=== PATIENT | female | born 1960 | race Caucasian/White ===

== ENCOUNTER → 2020-06-08 08:15 | Outpatient (BNVA) | payer MEDICAID, SELFPAY | PROVIDERS: Family Provider Nurse Practitioner Family; PCP Nurse Practitioner Family; Visit Provider Specialist | DX: G56.02 Carpal tunnel syndrome, left upper limb (principal); R20.0 Anesthesia of skin; R20.2 Paresthesia of skin | CPT/HCPCS: 95886; 95908 ==

== ENCOUNTER 2020-07-29 13:06 | Outpatient (CLI) | payer MEDICAID, SELFPAY ==
--- NOTE | 2020-07-29 13:11 | MR_ITS ---
WS: [id number] MRI LEFT SHOULDER NONCONTRAST TECHNIQUE: Sagittal T2, coronal T1, T2 and proton density imaging. Axial gradient PDE imaging. CLINICAL INFORMATION: PAIN IN LEFT SHOULDER COMPARISON: January 2019 FINDINGS: Images moderately degraded by motion. Mild degenerative arthritis AC joint with mild downsloping acromion. Slight subacromial spurring. Hig h-grade rotator cuff tear involving the distal supraspinatus with tendon retraction. Full-thickness s upraspinatus tear with tendon retraction measuring approximately 1.9 CM. Edema within the supraspinat us. Edema within the infraspinatus muscle belly with partial thickness tendon tear and edema. Chronic thinning of the distal infraspinatus. Normal teres minor. Partial tear involving the distal subscapularis. Normal biceps tendon in the bici pital groove. Biceps labral anchor appears in tact. Intra-articular biceps tendon appears intact. Deg enerative fraying of the glenoid labrum. MR/MR shoulder LT wo con* [id number] IMPRESSION: 1. High-grade full-thickness tear involving the supraspinatus distally with te ndon retraction measuring 1.9 CM. This is new since 2019. 2. High-grade tear involving the distal infraspinatus with edema and chronic t hinning. 3. Chronic thinning of the distal subscapularis tendon which appears intact. 4. Normal biceps tendon in the bicipital groove. 5. Biceps labral anchor appears intact. 6. Mild degenerative arthritis AC joint with mild downsloping acromion. Small amount of subacromial/subdeltoid fluid.
== END 2020-07-29 13:07 | disposition home or self-care (01) ==
LOC: RADSHAW 13:09
PROVIDERS: Family Provider Nurse Practitioner Family; PCP Nurse Practitioner Family; Visit Provider Nurse Practitioner Family
DX: M75.102 Unspecified rotator cuff tear or rupture of left shoulder, not specified as traumatic (principal); M19.012 Primary osteoarthritis, left shoulder; R60.0 Localized edema; S46.812A Strain of other muscles, fascia and tendons at shoulder and upper arm level, left arm, initial encounter; X58.XXXA Exposure to other specified factors, initial encounter
CPT/HCPCS: 73221

== ENCOUNTER → 2020-08-03 15:00 | Outpatient (BNVA) | payer MEDICAID, SELFPAY | PROVIDERS: Family Provider Nurse Practitioner Family; PCP Nurse Practitioner Family; Referring Provider Nurse Practitioner Family; Visit Provider Specialist | DX: G56.02 Carpal tunnel syndrome, left upper limb (principal) | CPT/HCPCS: 73110 ==

== ENCOUNTER → 2020-08-27 09:34 | Outpatient (BNVA) | payer MEDICAID, SELFPAY | PROVIDERS: Family Provider Nurse Practitioner Family; PCP Nurse Practitioner Family; Referring Provider Registered Nurse; Visit Provider Specialist | DX: S49.90XA Unspecified injury of shoulder and upper arm, unspecified arm, initial encounter (principal); X58.XXXA Exposure to other specified factors, initial encounter; M77.9 Enthesopathy, unspecified | CPT/HCPCS: 73030 ==

== ENCOUNTER → 2020-11-11 08:15 | Outpatient (BNVA) | payer MEDICAID, SELFPAY | PROVIDERS: Family Provider Nurse Practitioner Family; PCP Nurse Practitioner Family; Visit Provider Orthopaedic Surgery | DX: S62.600A Fracture of unspecified phalanx of right index finger, initial encounter for closed fracture (principal); X58.XXXA Exposure to other specified factors, initial encounter | CPT/HCPCS: 73140 ==

== ENCOUNTER → 2021-03-04 09:38 | Outpatient (BNVA) | payer MEDICAID, SELFPAY | PROVIDERS: Family Provider Nurse Practitioner Family; PCP Nurse Practitioner Family; Visit Provider Specialist | DX: S49.92XA Unspecified injury of left shoulder and upper arm, initial encounter (principal); X58.XXXA Exposure to other specified factors, initial encounter | CPT/HCPCS: 73030 ==

== ENCOUNTER → 2021-05-18 10:31 | Outpatient (BNVA) | payer MEDICAID, SELFPAY | PROVIDERS: Family Provider Nurse Practitioner Family; PCP Nurse Practitioner Family; Visit Provider Internal Medicine | DX: E11.40 Type 2 diabetes mellitus with diabetic neuropathy, unspecified (principal); E11.22 Type 2 diabetes mellitus with diabetic chronic kidney disease; N18.30 Chronic kidney disease, stage 3 unspecified; E78.2 Mixed hyperlipidemia; I73.9 Peripheral vascular disease, unspecified; Z79.4 Long term (current) use of insulin | CPT/HCPCS: 99204 ==

== ENCOUNTER 2021-05-18 12:03 | Outpatient (CLI) | payer MEDICAID, SELFPAY | END 2021-05-18 12:04 | disposition home or self-care (01) | PROVIDERS: PCP Nurse Practitioner Family; Visit Provider Internal Medicine | DX: E13.9 Other specified diabetes mellitus without complications (principal) | CPT/HCPCS: 83519; 83525; 86337; 86341 ==

== ENCOUNTER → 2021-06-03 14:32 | Outpatient (BNVA) | payer MEDICAID, SELFPAY | PROVIDERS: PCP Nurse Practitioner Family; Visit Provider Internal Medicine | DX: E11.40 Type 2 diabetes mellitus with diabetic neuropathy, unspecified (principal); E11.22 Type 2 diabetes mellitus with diabetic chronic kidney disease; N18.30 Chronic kidney disease, stage 3 unspecified; E11.51 Type 2 diabetes mellitus with diabetic peripheral angiopathy without gangrene; E78.2 Mixed hyperlipidemia; Z79.4 Long term (current) use of insulin | CPT/HCPCS: 99214 ==

== ENCOUNTER → 2021-07-08 08:26 | Outpatient (BNVA) | payer MEDICAID, SELFPAY | PROVIDERS: PCP Nurse Practitioner Family; Visit Provider Specialist | DX: X58.XXXA Exposure to other specified factors, initial encounter; Z71.89 Other specified counseling; M19.012 Primary osteoarthritis, left shoulder; S46.012A Strain of muscle(s) and tendon(s) of the rotator cuff of left shoulder, initial encounter | CPT/HCPCS: 20610; J1100; J2795; J3301 ==

== ENCOUNTER → 2022-05-24 14:19 | Outpatient (BNVA) | payer MEDICAID, SELFPAY | PROVIDERS: PCP Nurse Practitioner Family; Referring Provider Nurse Practitioner Family; Visit Provider Nurse Practitioner Family | DX: M17.12 Unilateral primary osteoarthritis, left knee (principal) | CPT/HCPCS: 20610; 73560; 73565; 99214; J1100; J2795; J3301 ==

== ENCOUNTER → 2022-08-31 14:59 | Outpatient (BNVA) | payer MEDICAID, SELFPAY | PROVIDERS: PCP Nurse Practitioner Family; Visit Provider Otolaryngology | DX: H93.13 Tinnitus, bilateral (principal) | CPT/HCPCS: 99202 ==

== ENCOUNTER 2022-08-31 15:39 | Emergency (ER) | payer MEDICAID, SELFPAY ==
[2022-08-31 16:14] VITALS: BP 132/71; PULSE 90; RESP 18; TEMP 37; O2SAT 95; BMI 41.1
--- NOTE | 2022-08-31 17:23 | XRR_ITS ---
PROCEDURE INFORMATION: Exam: XR Left Knee Exam date and time: 08/31/2022 4:34 PM Age: 62 years old Clinical indication: Pain; Knee; Left; Additional info: Injury TECHNIQUE: Imaging protocol: Radiologic exam of the left knee. Views: 3 views. AP Obilque Lateral COMPARISON: No relevant prior studies available. FINDINGS: Bones/joints: There is mild tibia vera. There are no fractures or dislocations. 3 compartment degenerative osteophytes are seen with medium-sized anterior distal femoral degenerative osteophytes. Severe medial tibiofemoral compartment and patellofemoral compartment joint space narrowing is seen, consistent with osteoarthritic change. There are no joint bodies. Soft tissues: There appears to be a tiny knee joint effusion. There are no radiopaque foreign bodies. There is no significant radiographic knee region soft tissue swelling. Notes: If there is further concern, recommend follow-up radiographs or MRI for complete assessment. XR/XR knee LT 3V* [id number] IMPRESSION: No fractures or dislocation of the left knee. Severe degenerative changes of the left knee, as noted above.
--- NOTE | 2022-08-31 17:23 | XRR_ITS ---
PROCEDURE INFORMATION: Exam: XR Left Elbow Exam date and time: 08/31/2022 4:32 PM Age: 62 years old Clinical indication: Pain; Elbow; Left; Additional info: Injury TECHNIQUE: Imaging protocol: Radiologic exam of the left elbow. Views: 3 or more views. AP Oblique Lateral COMPARISON: No relevant prior studies available. FINDINGS: Bones/joints: There are no fractures or dislocations. The joint spaces are normal. There is no joint effusion. Curvilinear calcification is seen in the region of the medial distal humeral epicondylar region, suggestive of calcific tendinopathy. Soft tissues: There is no soft tissue swelling or radiopaque foreign bodies. Notes: If there is further clinical concern, recommend followup radiographs, bone scan or MRI for further assessment. XR/XR elbow LT min 3V* [id number] IMPRESSION: No fractures or dislocation of the left elbow.
--- NOTE | 2022-08-31 17:24 | W.ED.FALL ---
HPI - Fall General: Chief Complaint: Fall Stated Complaint: parking lot fall, lt knee, lt elbow Time Seen by Provider: 08/31/22 17:22 History of Present Illness: 62-year-old female comes in today with complaints of injury sustained during a fall. Patient was going into the medical office building when she had stepped up onto a curb and was looking to make sure no vehicles coming and missed stepped causing her to fall striking her left knee and her left elbow against the ground. Patient has an abrasion and bruising noted to the left elbow. Superficial bruising is noted to the anterior knee. Patient is able to bear weight. Patient denies any head injury, headache, nausea/vomiting, or chest pain. Associated symptoms-after fall: Denies chest pain, headache(s) or neck pain Review of Systems General: Reports: 10 or more systems reviewed and unremarkable except in HPI and below Const: Denies: fever(s) Card: Denies: chest pain Resp: Denies: dyspnea : Denies: difficulty voiding Musc: Reports: extremity pain and extremity swelling; Denies: neck pain or back pain Skin/Breast: Reports: new lesions (Abrasion elbow) Neuro: Denies: headache(s) PFSH ED PFSH: Medical History Depression DM2 (diabetes mellitus, type 2) Essential (primary) hypertension GERD (gastroesophageal reflux disease) Osteoarthritis Overactive bladder PAD (peripheral artery disease) Surgical History History of History of cholecystectomy History of hysterectomy History of knee surgery History of repair of rotator cuff Family History Other Diabetes Heart disease Hypertension Social History Smoking and tobacco status: never smoked Alcohol intake: never Substance/Drug Use: never Physical Exam Const: COMMON NORMALS: alert HENMT: COMMON NORMALS: normocephalic HEAD & SCALP: normocephalic Neck/C-Spine: COMMON NORMALS: full ROM Resp: COMMON NORMALS: normal respiratory effort and clear to auscultation bilaterally AUSCULTATION: clear to auscultation bilaterally Cardio: COMMON NORMALS: regular rate and regular rhythm RATE: regular rate RHYTHM: regular rhythm Neuro: SENSORIUM/ORIENTATION: Yes alert Course Vital Signs: Vital signs: Vital Signs Temperature 98.6 F 08/31/22 16:14 Pulse Rate 90 08/31/22 16:14 Respiratory Rate 18 08/31/22 16:14 Blood Pressure 132/71 08/31/22 16:14 Pulse Oximetry 95 08/31/22 16:14 Oxygen Delivery Me thod Room Air 08/31/22 16:14 MDM - Fall Medical Decision Making Patient comes in today for evaluation of injury in which she was stepping off a curb and was looking to make sure no other person or vehicle was coming in which she lost her step causing her to fall onto her left knee and left elbow. Patient denies head injury or back pain. Patient has a bruise and abrasion to the left elbow posterior region. She does have range of motion except with full extension some decrease due to pain. Patient has slight bruising to the anterior knee but no noticeable abrasion. Differential diagnosis includes contusion, abrasion, fracture, dislocation. X-ray of the elbow and knee indicated no acute bony injury. Patient does have severe arthritis to the left knee. Abrasion to the elbow was cleaned and dressed with topical antibiotic bacitracin and covered. Recommend patient continue with antibiotic ointment to the abrasion until healed. Recommend follow-up with primary care for further evaluation and treatment. Patient reported understanding agreed to plan. Discharge Plan Discharge Patient Disposition: Home Clinical Impression: Fall from slip, trip, or stumble Qualifiers: Encounter type: initial encounter Qualified Code(s): W01.0XXA - Fall on same level from slipping, tripping and stumbling without subsequent striking against object, initial encounter Abrasion of elbow, left Qualifiers: Encounter type: initial encounter Qualified Code(s): S50.312A - Abrasion of left elbow, initial encounter Contusion of elbow, left Qualifiers: Encounter type: initial encounter Qualified Code(s): S50.02XA - Contusion of left elbow, initial encounter Contusion of knee, left Qualifiers: Encounter type: initial encounter Qualified Code(s): S80.02XA - Contusion of left knee, initial encounter Condition: Stable Prescriptions: New bacitracin 500 unit/gram ointment 1 applic topical BID Qty: 28 0RF No Action [employer] SoloStar U-300 Insulin 300 unit/mL (1.5 mL) insulin pen 60 unit SUBCUT DAILY meloxicam 15 mg tablet 15 mg PO DAILY Qty: 30 0RF Rx Instructions: take one tablet daily naproxen 500 mg tablet 500 mg PO BID pantoprazole 20 mg tablet,delayed release (DR/EC) 20 mg PO BID rosuvastatin 40 mg tablet 40 mg PO DAILY bupropion HCl [Wellbutrin XL] 300 mg tablet extended release 24 hr 300 mg PO QAM citalopram 40 mg tablet 40 mg PO DAILY insulin aspart U-100 [Novolog FlexPen U-100 Insulin] 100 unit/mL (3 mL) insulin pen See Rx Instructions SUBCUT TID Rx Instructions: SUBCUT three times daily; per sliding scale (DME) blood sugar diagnostic Strip See Rx Instructions .ROUTE .MEDSUPPLY Qty: 100 0RF Rx Instructions: TEST THREE TIMES DAILY (DME) Precision Xtra Test Strip See Rx Instructions .ROUTE .MEDSUPPLY Qty: 100 3RF Rx Instructions: three times daily Januvia 100 mg tablet 100 mg PO DAILY Qty: 30 3RF docusate sodium [Colace] 100 mg capsule 100 mg PO BID Qty: 30 3RF atenolol-chlorthalidone 50-25 mg tablet 1 tab PO DAILY Qty: 30 3RF aspirin [Adult Aspirin Regimen] 81 mg tablet,delayed release (DR/EC) 81 mg PO DAILY Qty: 30 3RF loratadine [Allergy Relief (loratadine)] 10 mg tablet 10 mg PO DAILY Qty: 30 3RF Discharge Orders: Discharge ED (Routine); Ordered 08/31/22 Ordered By: Tejas Saini Referrals: Sil Eason NP [Primary Care Provider] - Discharge Diet: Usual diet Discharge Activity: Increase activity as tolerated Patient Instructions: Abrasion (ED) Activity Restrictions/Additional Instructions: Clean abrasion with mild soap and water, apply antibiotic ointment and cover as needed with a light dressing. Use acetaminophen and/or ibuprofen as needed for pain. Activity as tolerated. Follow-up with primary care for further instruction. Return to ED for new concerns. Coding Level of Care Code ED [employer] for Trang Rodriguez
[2022-08-31] MEDS: bacitracin ointment Pkt 1 EACH TOPICAL (18:30)
== END 2022-08-31 18:47 | disposition home or self-care (01) ==
PROVIDERS: Emergency Provider Nurse Practitioner Family; PCP Nurse Practitioner Family
DX: S50.312A Abrasion of left elbow, initial encounter (principal); S50.02XA Contusion of left elbow, initial encounter; S80.02XA Contusion of left knee, initial encounter; W01.0XXA Fall on same level from slipping, tripping and stumbling without subsequent striking against object, initial encounter; Y93.01 Activity, walking, marching and hiking; Y92.480 Sidewalk as the place of occurrence of the external cause
CPT/HCPCS: 73080; 73562; 99283

== ENCOUNTER → 2023-08-23 15:40 | Outpatient (BNVA) | payer MEDICAID, SELFPAY | PROVIDERS: PCP Nurse Practitioner Family; Referring Provider Nurse Practitioner Family; Visit Provider Specialist | DX: M17.12 Unilateral primary osteoarthritis, left knee (principal); E66.01 Morbid (severe) obesity due to excess calories; Z68.41 Body mass index [BMI] 40.0-44.9, adult | CPT/HCPCS: 20610; 73560; 73565; 99214; J1100; J2795; J3301 ==

== ENCOUNTER → 2024-10-23 10:02 | Outpatient (BNVA) | payer MEDICAID, SELFPAY | PROVIDERS: PCP Nurse Practitioner Family; Visit Provider Specialist | DX: G56.02 Carpal tunnel syndrome, left upper limb (principal) | CPT/HCPCS: 73110; 99214 ==